=== PATIENT | male | born 1935 | race Caucasian/White ===

== ENCOUNTER 2017-10-12 08:55 | Emergency (ER) | payer MEDICARE, BC ==
[~2017-10-12] VITALS: Ht 170.2 cm; Wt 75.0 kg
[~2017-10-12 08:55] MED LIST: ASPI81 PO; ATOR20TA42 PO; FERR324T4 PO; LOSA25TA31 PO; NITR0.4S SL; OMEG1CAP53 PO; PLAV75TA PO; PROT40TA PO; TAMS0.4C67 PO
[2017-10-12 08:57] VITALS: BP 119/68; PULSE 75; RESP 18; TEMP 97.7; O2SAT 99
[2017-10-12 09:14] VITALS: BP 116/75; PULSE 68; RESP 16; O2SAT 95
[2017-10-12] MEDS ORDERED: SODIUM CHLOR 0.9% 1000 ML INJ 1,000 ML IV SCH (09:18)
--- NOTE | 2017-10-12 09:28 | PD ---
HPI Chief Complaint: Medical Clearance Time Seen by Provider: 09:08 Travel History International Travel<30 days: No Contact w/Intl Traveler<30days: No Traveled to known affect area: No History of Present Illness HPI The patient is a 82-year-old male who presents to the emergency department for generalized weakness. The patient states his symptoms started 5 months ago after he had his lower teeth pulled. The patient then went to a wedding in [place], [place], for his daughter. The patient had 4-5 days of increasing generalized malaise. The patient has been evaluated by his wind farm engineer, Dr. Souza, with a 1 week heart monitor that was unremarkable. The patient states he had laboratory evaluation by his primary physician, Dr. Perry, but there was no obvious source of his lethargy. He notes increasing generalized malaise for 5 months, states he has numbness and tingling from the head to the feet, and over the last several days has had lower abdominal pain. He does note some weight loss. He also notes a history of anemia, however, they do not know the source of bleeding. He denies any tick exposures or history of Lyme disease. He denies any history of autoimmune disorders including lupus and rheumatoid arthritis. He denies any current fever, chills, sweats, chest pain, shortness of breath, cough, nausea, vomiting, but does note lower abdominal pain. He denies any associated dysuria. Symptoms are moderate , chronic of 5 months duration, with no obvious source. 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 ) Endocrine: No Gastrointestinal Disorders: Yes GERD: Yes Genitourinary: Yes (TURP) Immune Disorder: No Implanted Vascular Access Dvce: Yes Musculoskeletal: Yes Neurologic: Yes Psychiatric: No Reproductive: No Respiratory: Yes (COPD) Immunizations Current: Yes Myocardial Infarction: Yes Influenza Vaccination: No Past Surgical History Body Medical Devices: STENT Cardiac Surgery: Yes (2 VESSEL HEART BYPASS AND 1 STENT, 3 STENTS) Endocrine Surgery: No Genitourinary Surgery: Yes (TURP) Other Surgery: Yes (FUSED L4-L5 S1) Social History Alcohol Use: Yes (RARE) Tobacco Use: No Substance Use: No Allergies-Medications (Allergen,Severity, Reaction): Coded Allergies: No Known Allergies (Verified Adverse Reaction, Unknown, 10/12/17) Reported Meds & Prescriptions Reported Meds & Active Scripts Active Protonix (Pantoprazole Sodium) 40 Mg Tabdr 40 Mg PO DAILY Ferrous Sulfate 325 Mg Tab 325 Mg PO BID Reported Nitrostat (Nitroglycerin) 0.4 Mg Subl 0.4 Mg SL PRN 1 TAB SL EVERY 5 MINS X 3 PRN CHEST PAIN Plavix (Clopidogrel Bisulfate) 75 Mg Tab 75 Mg PO DAILY Lipitor (Atorvastatin Calcium) 20 Mg Tab 20 Mg PO DAILY Flomax (Tamsulosin HCl) 0.4 Mg Cap 0.4 Mg PO DAILY Cozaar (Losartan Potassium) 25 Mg Tab 25 Mg PO DAILY Lovaza (Fish Oil) 1 Gm Cap 1 Gm PO DAILY Aspirin 81 Mg Tab 81 Mg PO DAILY Review of Systems Except as stated in HPI: all other systems reviewed are Neg General / Constitutional: Positive: Weight Loss, No: Fever HENT: No: Headaches, Lightheadedness Cardiovascular: No: Chest Pain or Discomfort Respiratory: No: Shortness of Breath Gastrointestinal: Positive: Abdominal Pain, Changes in Bowel Habits, No: Nausea , Vomiting, Diarrhea Genitourinary: No: Dysuria Musculoskeletal: Positive: Weakness Skin: No Rash Neurologic: Positive: Weakness Psychiatric: No: Depression Physical Exam Narrative GENERAL: Awake, alert, pleasant 82-year-old male who appears his stated age and is in no acute respiratory distress. SKIN: Focused skin assessment warm/dry. HEAD: Atraumatic. Normocephalic. EYES: Pupils equal and round. No scleral icterus. No injection or drainage. ENT: No nasal bleeding or discharge. No visible lower teeth. NECK: Trachea midline. No JVD. CARDIOVASCULAR: Regular rate and rhythm. No murmur appreciated. Heart rate in the 60s. RESPIRATORY: No accessory muscle use. Clear to auscultation. Breath sounds equal bilaterally. GASTROINTESTINAL: Abdomen soft, tender palpation lower quadrant. No guarding or rigidity. Back: Well-healed midline lower scar. Genitourinary: Uncircumcised phallus. Both testicles are descended. No tenderness over the epididymis. MUSCULOSKELETAL: No obvious deformities. No clubbing. No cyanosis. No edema. NEUROLOGICAL: Awake and alert. No obvious cranial nerve deficits. Motor grossly within normal limits. Normal speech. Nonfocal. PSYCHIATRIC: Appropriate mood and affect; insight and judgment normal. Data Data Last Documented VS Vital Signs Date Time Temp Pulse Resp B/P (MAP) Pulse Ox O2 Delivery O2 Flow Rate FiO2 10/12/17 10:42 52 15 95/63 (74) 94 Room Air 10/12/17 08:57 97.7 Orders Orders Electrocardiogram (10/12/17 09:18) Complete Blood Count With Diff (10/12/17:18) Comprehensive Metabolic Panel (10/12/17:18) Creatine Kinase (Cpk) (10/12/17:18) Prothrombin Time / Inr (Pt) (10/12/17:18) Act Partial Throm Time (Ptt) (10/12/17:18) Troponin I (10/12/17:18) Thyroid Stimulating Hormone (10/12/17:18) Urinalysis - C+S If Indicated (10/12/17 09:18) Chest, Single Ap (10/12/17 09:18) Ct Brain W/O Iv Contrast(Rout) (10/12/17 09:18) Blood Glucose (10/12/17 09:18) Ecg Monitoring (10/12/17 09:18) Iv Access Insert/Monitor (10/12/17:18) Oximetry (10/12/17 09:18) Sodium Chloride 0.9% Flush (Ns Flush) (10/12/17 09:30) Sodium Chlor 0.9% 1000 Ml Inj (Ns 1000 M (10/12/17 09:18) Ct Abd/Pel W Iv Contrast(Rout) (10/12/17 ) C-Reactive Protein (Crp) (10/12/17 09:18) [place]gren Sedimentation Rate (10/12/17 09:18) Lactic Acid (10/12/17 09:18) Blood Culture (10/12/17 09:18) Sodium Chlor 0.9% 1000 Ml Inj (Ns 1000 M (10/12/17 11:15) Iohexol 350 Inj (Omnipaque 350 Inj) (10/12/17 11:29) Ciprofloxacin 400 Mg Premix (Cipro 400 M (10/12/17 12:15) Metronidazole 500 Mg Inj (Flagyl 500 Mg (10/12/17 12:15) Sodium Chlor 0.9% 1000 Ml Inj (Ns 1000 M (10/12/17 12:30) Labs Laboratory Tests Test 10/12/17 09:45 10/12/17 10:30 White Blood Count 13.9 TH/MM3 Red Blood Count 4.91 MIL/MM3 Hemoglobin 15.0 GM/DL Hematocrit 43.3 % Mean Corpuscular Volume 88.2 FL Mean Corpuscular Hemoglobin 30.5 PG Mean Corpuscular Hemoglobin Concent 34.6 % Red Cell Distribution Width 13.3 % Platelet Count 191 TH/MM3 Mean Platelet Volume 8.5 FL Neutrophils (%) (Auto) 80.8 % Lymphocytes (%) (Auto) 10.5 % Monocytes (%) (Auto) 7.1 % Eosinophils (%) (Auto) 1.4 % Basophils (%) (Auto) 0.2 % Neutrophils # (Auto) 11.2 TH/MM3 Lymphocytes # (Auto) 1.5 TH/MM3 Monocytes # (Auto) 1.0 TH/MM3 Eosinophils # (Auto) 0.2 TH/MM3 Basophils # (Auto) 0.0 TH/MM3 CBC Comment DIFF FINAL Differential Comment Erythrocyte Sedimentation Rate 24 mm/hr Prothrombin Time 10.8 SEC Prothromb Time International Ratio 1.1 RATIO Activated Partial Thromboplast Time 26.4 SEC Blood Urea Nitrogen 11 MG/DL Creatinine 1.05 MG/DL Random Glucose 99 MG/DL Total Protein 7.4 GM/DL Albumin 3.9 GM/DL Calcium Level 9.3 MG/DL Alkaline Phosphatase 66 U/L Aspartate Amino Transf (AST/SGOT) 34 U/L Alanine Aminotransferase (ALT/SGPT) 22 U/L Total Bilirubin 1.1 MG/DL Sodium Level 137 MEQ/L Potassium Level 4.3 MEQ/L Chloride Level 103 MEQ/L Carbon Dioxide Level 26.0 MEQ/L Anion Gap 8 MEQ/L Estimat Glomerular Filtration Rate 67 ML/MIN Lactic Acid Level 1.5 mmol/L Total Creatine Kinase 164 U/L Troponin I LESS THAN 0.02 NG/ML C-Reactive Protein 5.00 MG/DL Thyroid Stimulating Hormone 3rd Gen 0.724 uIU/ML Urine Color YELLOW Urine Turbidity CLEAR Urine pH 7.0 Urine Specific [place] 1.024 Urine Protein TRACE mg/dL Urine Glucose (UA) NEG mg/dL Urine Ketones NEG mg/dL Urine Occult Blood NEG Urine Nitrite NEG Urine Bilirubin NEG Urine Urobilinogen LESS THAN 2.0 MG/DL Urine Leukocyte Esterase NEG Urine WBC 1 /hpf Urine Squamous Epithelial Cells 1 /hpf Urine Calcium Oxalate Crystals RARE /hpf Urine Mucus MANY /lpf Microscopic Urinalysis Comment CATH-CULT NOT IND MDM Medical Decision Making Medical Screen Exam Complete: Yes Emergency Medical Condition: Yes Medical Record Reviewed: Yes Interpretation(s) EKG reveals normal sinus rhythm with a rate of 66. RSR prime in V1 with QRS of 133 ms, right bundle branch block. Inverted T-wave in lead III. Last Impressions Head CT 10/12/17917 Signed Impressions: Service Date/Time: Thursday, October 12, 2017 11:22 - CONCLUSION: No acute disease. Ron Awad MD Chest X-Ray 10/12/17917 Signed Impressions: Service Date/Time: Thursday, October 12, 2017 09:26 - CONCLUSION: No acute cardiopulmonary disease. Romero Willard MD Abdomen/Pelvis CT 10/12/17 0000 Signed Impressions: Service Date/Time: Thursday, October 12, 2017 11:26 - CONCLUSION: Moderate diverticulosis with acute diverticulitis the sigmoid colon as described above. Given the focal bowel wall thickening, suggest followup CT abdomen and pelvis after appropriate clinical therapy to ensure resolution of these findings. Ron Awad MD Laboratory Tests Test 10/12/17 09:45 10/12/17 10:30 White Blood Count 13.9 TH/MM3 Red Blood Count 4.91 MIL/MM3 Hemoglobin 15.0 GM/DL Hematocrit 43.3 % Mean Corpuscular Volume 88.2 FL Mean Corpuscular Hemoglobin 30.5 PG Mean Corpuscular Hemoglobin Concent 34.6 % Red Cell Distribution Width 13.3 % Platelet Count 191 TH/MM3 Mean Platelet Volume 8.5 FL Neutrophils (%) (Auto) 80.8 % Lymphocytes (%) (Auto) 10.5 % Monocytes (%) (Auto) 7.1 % Eosinophils (%) (Auto) 1.4 % Basophils (%) (Auto) 0.2 % Neutrophils # (Auto) 11.2 TH/MM3 Lymphocytes # (Auto) 1.5 TH/MM3 Monocytes # (Auto) 1.0 TH/MM3 Eosinophils # (Auto) 0.2 TH/MM3 Basophils # (Auto) 0.0 TH/MM3 CBC Comment DIFF FINAL Differential Comment Erythrocyte Sedimentation Rate 24 mm/hr Prothrombin Time 10.8 SEC Prothromb Time International Ratio 1.1 RATIO Activated Partial Thromboplast Time 26.4 SEC Blood Urea Nitrogen 11 MG/DL Creatinine 1.05 MG/DL Random Glucose 99 MG/DL Total Protein 7.4 GM/DL Albumin 3.9 GM/DL Calcium Level 9.3 MG/DL Alkaline Phosphatase 66 U/L Aspartate Amino Transf (AST/SGOT) 34 U/L Alanine Aminotransferase (ALT/SGPT) 22 U/L Total Bilirubin 1.1 MG/DL Sodium Level 137 MEQ/L Potassium Level 4.3 MEQ/L Chloride Level 103 MEQ/L Carbon Dioxide Level 26.0 MEQ/L Anion Gap 8 MEQ/L Estimat Glomerular Filtration Rate 67 ML/MIN Lactic Acid Level 1.5 mmol/L Total Creatine Kinase 164 U/L Troponin I LESS THAN 0.02 NG/ML C-Reactive Protein 5.00 MG/DL Thyroid Stimulating Hormone 3rd Gen 0.724 uIU/ML Urine Color YELLOW Urine Turbidity CLEAR Urine pH 7.0 Urine Specific [place] 1.024 Urine Protein TRACE mg/dL Urine Glucose (UA) NEG mg/dL Urine Ketones NEG mg/dL Urine Occult Blood NEG Urine Nitrite NEG Urine Bilirubin NEG Urine Urobilinogen LESS THAN 2.0 MG/DL Urine Leukocyte Esterase NEG Urine WBC 1 /hpf Urine Squamous Epithelial Cells 1 /hpf Urine Calcium Oxalate Crystals RARE /hpf Urine Mucus MANY /lpf Microscopic Urinalysis Comment CATH-CULT NOT IND Differential Diagnosis Differential diagnosis includes Lyme disease, autoimmune disorder, symptomatic anemia, hypothyroidism, colon cancer, pancreatic cancer, UTI, depression, subdural hematoma, septicemia. Narrative Course IV was established, labs are drawn and sent, and the patient was placed on cardiac telemetry monitoring and continuous pulse oximetry monitoring. EKG was ordered and interpreted. CT brain and abdomen/pelvis were obtained. TSH, CPK, sed rate, and CRP were sent to lab. The patient's white count is mildly elevated. Sed rate minimally elevated. CRP is elevated. The patient's blood pressure systolic was in the 90s, heart rate was in the 40s-50s, patient was sitting upright and asymptomatic. I recommended admission for diverticulitis, however, the patient does not want to be admitted states he does have close follow-up with his primary physician, Dr. Magana. Therefore, the patient was administered Cipro and Flagyl, will be discharged home on Cipro and Flagyl with [place] as needed for pain. Plenty fluids to stay hydrated. He is advised to return if symptoms worsen or progress and follow-up with his primary physician. Diagnosis Primary Impression: Diverticulitis Patient Instructions: General Instructions Additional Instructions: Medications as directed. Follow-up with Dr. cruz as soon as possible. Return if symptoms worsen or progress. Please provide the patient a copy of his labs and CT discharge. Med/Other Pt SpecificInfo: Prescription(s) given Scripts Hydrocodone-Acetaminophen ([place]) 5 Mg-325 Mg Tab 1 TAB PO Q6H Y for PAIN, #12 TAB 0 Refills Prov: Jd Poole MD 10/12/17 Metronidazole (Flagyl) 500 Mg Tab 500 MG PO BID for Infection for 10 Days, #20 TAB 0 Refills Prov: Jd Poole MD 10/12/17 Ciprofloxacin (Cipro) 500 Mg Tab 500 MG PO BID for Infection for 10 Days, #20 TAB 0 Refills Prov: Jd Poole MD 10/12/17 Disposition: 01 DISCHARGE HOME Condition: Stable Jd Poole MD Oct 12, 2017 09:28
[2017-10-12] MEDS ORDERED: SODIUM CHLORIDE 0.9% FLUSH 10 ML FLUSH IV FLUSH PRN (09:30)
--- NOTE | 2017-10-12 09:38 | RADRPT ---
EXAM DATE/TIME: 10/12/2017 09:26 [facility] COMPARISON: CHEST SINGLE AP, May 12, 2015, 19:41. INDICATIONS : Patient states shortness of breath. MEDICAL HISTORY : Cardiovascular disease. SURGICAL HISTORY : CABG. Cardiac stents (s). ENCOUNTER: Initial ACUITY: 1 day PAIN SCORE: 0/10 LOCATION: Bilateral chest FINDINGS: Median sternotomy wires are noted status post cardiac surgery. The heart is stable. The pulmonary vas cular pattern is normal. The lungs are clear. Degenerative changes and scoliosis of the thoracic spin e are noted CONCLUSION: No acute cardiopulmonary disease. Romero Willard MD on October 12, 2017 at 9:35 Board Certified Radiologist. This report was verified electronically.
[2017-10-12 10:25] LABS: AUTOMATED NEUTROPHIL # 11.2 TH/MM3 (1.8-7.7); BASOPHIL % 0.2 % (0.0-2.0); EOSINOPHIL # 0.2 TH/MM3 (0-0.4); EOSINOPHIL % 1.4 % (0.0-4.0); HEMATOCRIT 43.3 % (39.0-51.0); LYMPH % 10.5 % (9.0-44.0); LYMPHOCYTE # 1.5 TH/MM3 (1.0-4.8); MEAN CELL VOLUME 88.2 FL (80.0-100.0); MEAN CORPUSCULAR HEMOGLOBIN 30.5 PG (27.0-34.0); MEAN CORPUSCULAR HGB CONC 34.6 % (32.0-36.0); MEAN PLATELET VOLUME 8.5 FL (7.0-11.0); MONO % 7.1 % (0.0-8.0); NEUT % 80.8 % (16.0-70.0); PLATELET COUNT 191 TH/MM3 (150-450); RED BLOOD COUNT 4.91 MIL/MM3 (4.50-5.90); RED CELL DISTRIBUTION WIDTH 13.3 % (11.6-17.2); WHITE BLOOD COUNT 13.9 TH/MM3 (4.0-11.0)
[2017-10-12 10:31] LABS: INTERNATIONAL NORMALIZED RATIO 1.1 RATIO; PROTHROMBIN TIME - PATIENT 10.8 SEC (9.8-11.6)
[2017-10-12 10:38] LABS: ALT (GPT) 22 U/L (12-78)
[2017-10-12 10:42] VITALS: BP 95/63; PULSE 52; RESP 15; O2SAT 94
[2017-10-12 11:04] LABS: ALBUMIN 3.9 GM/DL (3.4-5.0); ALKALINE PHOSPHATASE 66 U/L (45-117); AST (GOT) 34 U/L (15-37); BLOOD UREA NITROGEN 11 MG/DL (7-18); CALCIUM 9.3 MG/DL (8.5-10.1); CHLORIDE 103 MEQ/L (98-107); CREATININE 1.05 MG/DL (0.60-1.30); GLOMERULAR FILTRATION RATE 67 ML/MIN (>89); GLUCOSE,RANDOM 99 MG/DL (74-106); SODIUM (NA) 137 MEQ/L (136-145); TOTAL BILIRUBIN ADULT 1.1 MG/DL (0.2-1.0); TOTAL PROTEIN 7.4 GM/DL (6.4-8.2); TROPONIN I LESS THAN 0.02 NG/ML (0.02-0.05)
[2017-10-12] MEDS ORDERED: SODIUM CHLOR 0.9% 1000 ML INJ 1,000 ML IV ONE ×2 (11:15→12:30)
[2017-10-12] MEDS ORDERED: IOHEXOL 350 MG/ML 10 ML VIAL (for RAD DIAG) IVCONTRAST ONE (11:29)
--- NOTE | 2017-10-12 11:29 | RADRPT ---
EXAM DATE/TIME: 10/12/2017 11:22 [facility] COMPARISON: No previous studies available for comparison. INDICATIONS : Altered mental status. RADIATION DOSE: 50.74 CTDIvol (mGy) MEDICAL HISTORY : Cardiovascular disease. SURGICAL HISTORY : TURP ENCOUNTER: Initial ACUITY: 1 day PAIN SCALE: 0/10 LOCATION: cranial TECHNIQUE: Multiple contiguous axial images were obtained of the head. Using automated exposure control and adj ustment of the mA and/or kV according to patient size, radiation dose was kept as low as reasonably a chievable to obtain optimal diagnostic quality images. DICOM format image data is available electro nically for review and comparison. FINDINGS: CEREBRUM: The ventricles are normal for age. No evidence of midline shift, mass lesion, hemorrhage or acute in farction. No extra-axial fluid collections are seen. POSTERIOR FOSSA: The cerebellum and brainstem are intact. The 4th ventricle is midline. The cerebellopontine angle i s unremarkable. EXTRACRANIAL: The visualized portion of the orbits is intact. SKULL: The calvaria is intact. No evidence of skull fracture. CONCLUSION: No acute disease. Ron Awad MD on October 12, 2017 at 11:27 Board Certified Radiologist. This report was verified electronically.
[2017-10-12 11:46] LABS: BILIRUBIN, URINE NEG (NEG); BLOOD, URINE NEG (NEG); CALCIUM OXALATE CRYSTALS,URINE RARE /hpf; GLUCOSE,URINE NEG (NEG); KETONE, URINE NEG (NEG); MUCUS URINE MANY /lpf (OCC); NITRITE,URINE NEG (NEG); SQUAMOUS EPITHELIAL CELL URINE 1 /hpf (0-5); URINE COLOR YELLOW (YELLW/STRAW); URINE LEUKOCYTE ESTERASE NEG (NEG)
--- NOTE | 2017-10-12 11:49 | RADRPT ---
EXAM DATE/TIME: 10/12/2017 11:26 [facility] COMPARISON: No previous studies available for comparison. INDICATIONS : Abdominal pain and weight loss. IV CONTRAST: 95 cc Omnipaque 350 (iohexol) IV ORAL CONTRAST: No oral contrast ingested. RADIATION DOSE: 9.60 CTDIvol (mGy) MEDICAL HISTORY : Cardiovascular disease. SURGICAL HISTORY : TURP, Left hip replacement, lumbar fusion. ENCOUNTER: Initial ACUITY: 1 month PAIN SCALE: 4/10 LOCATION: abdomen TECHNIQUE: Volumetric scanning of the abdomen and pelvis was performed. Using automated exposure control and ad justment of the mA and/or kV according to patient size, radiation dose was kept as low as reasonably achievable to obtain optimal diagnostic quality images. DICOM format image data is available electro nically for review and comparison. FINDINGS: No pleural or pericardial effusions are seen. There are scattered cysts present within the liver the largest in the lateral left lobe measuring 2.4 cm. Gallbladder, pancreas, adrenals are unremarkable. Calcified granulomas are present within the spleen. There is a cyst at the midpole of the right kidne y measuring 1.5 cm. Atherosclerotic calcifications of the aorta and iliac vessels are seen. The patie nt has had previous TURP, and the prostate gland is prominent in size measuring 6.3 x 4.7 cm in trans verse and AP dimension. Urinary bladder unremarkable. There are extensive inflammatory changes seen i n the sigmoid mesentery with moderate diverticulosis and an inflamed diverticulum characteristic of a cute diverticulitis. There is associated bowel wall thickening extending over 7 cm. Moderate descendi ng colonic diverticulosis without diverticulitis is also present. The appendix is normal. There is no adenopathy. Lung bases are clear. Osseous structures demonstrate posterior lawrence and transpedicular sc rew fixation and intervertebral fusion hardware placement at L4-5. CONCLUSION: Moderate diverticulosis with acute diverticulitis the sigmoid colon as described above. Given the foc al bowel wall thickening, suggest followup CT abdomen and pelvis after appropriate clinical therapy t o ensure resolution of these findings. Ron Awad MD on October 12, 2017 at 11:45 Board Certified Radiologist. This report was verified electronically.
[2017-10-12] MEDS ORDERED: metroNIDAZOLE 500 MG INJ 100 ML IV ONE (12:15)
[2017-10-12] MEDS ORDERED: CIPROFLOXACIN 400 MG PREMIX 200 ML IV ONE (12:15)
[2017-10-12] MEDS ORDERED: NORC5TAB PO (12:53)
[2017-10-12] MEDS ORDERED: METR-1 PO (12:53)
[2017-10-12] MEDS ORDERED: CIPR-9 PO (12:53)
--- NOTE | 2017-10-12 18:45 | EKG ---
Date Performed: 10/12/2017 Time Performed: 09:20:32 PTAGE: 82 years EKG: Sinus rhythm RIGHT BUNDLE BRANCH BLOCK Since the prior tracing, there has been no significant change ABNORMAL ECG PREVIOUS TRACING : 05/13/15 @ 0729 DOCTOR: Kerline Wagoner Interpretating Date/Time 10/12/2017 18:44:40
== END 2017-10-12 14:24 | disposition home or self-care (01) ==
LOC: NEPC 08:55
DX: K57.92 Diverticulitis of intestine, part unspecified, without perforation or abscess without bleeding (principal); K57.90 Diverticulosis of intestine, part unspecified, without perforation or abscess without bleeding; I45.10 Unspecified right bundle-branch block; R94.31 Abnormal electrocardiogram [ECG] [EKG]; D64.9 Anemia, unspecified; M32.9 Systemic lupus erythematosus, unspecified; M06.9 Rheumatoid arthritis, unspecified; M19.90 Unspecified osteoarthritis, unspecified site; J44.9 Chronic obstructive pulmonary disease, unspecified
CPT/HCPCS: 70450; 71045; 74177; 80053; 81001; 82550; 83605; 84443; 84484; 85025; 85610; 85652; 85730; 86140; 87040; 93005; 96361; 96365; 96367; 99285; J0744; J7030; Q9967

== ENCOUNTER 2017-11-10 19:25 | Emergency (ER) | payer MEDICARE, BC ==
[~2017-11-10 19:25] MED LIST changes: +CIPR-9 PO; +METR-1 PO; +NORC5TAB PO
[2017-11-10 19:59] VITALS: BP 139/68; PULSE 63; RESP 18; TEMP 98.5; O2SAT 95
[2017-11-10 21:11] LABS: AUTOMATED NEUTROPHIL # 7.3 TH/MM3 (1.8-7.7); BASOPHIL # 0.1 TH/MM3 (0-0.2); BASOPHIL % 0.5 % (0.0-2.0); EOSINOPHIL # 0.4 TH/MM3 (0-0.4); EOSINOPHIL % 3.6 % (0.0-4.0); HEMATOCRIT 42.5 % (39.0-51.0); HEMOGLOBIN 14.5 GM/DL (13.0-17.0); LYMPHOCYTE # 1.6 TH/MM3 (1.0-4.8); MEAN CELL VOLUME 88.2 FL (80.0-100.0); MEAN CORPUSCULAR HEMOGLOBIN 30.1 PG (27.0-34.0); MEAN CORPUSCULAR HGB CONC 34.1 % (32.0-36.0); MEAN PLATELET VOLUME 8.5 FL (7.0-11.0); MONOCYTE # 0.9 TH/MM3 (0-0.9); NEUT % 70.9 % (16.0-70.0); PLATELET COUNT 156 TH/MM3 (150-450); RED BLOOD COUNT 4.82 MIL/MM3 (4.50-5.90); RED CELL DISTRIBUTION WIDTH 13.3 % (11.6-17.2); WHITE BLOOD COUNT 10.2 TH/MM3 (4.0-11.0)
[2017-11-10 21:15] LABS: BILIRUBIN, URINE NEG (NEG); BLOOD, URINE NEG (NEG); GLUCOSE,URINE NEG (NEG); KETONE, URINE NEG (NEG); NITRITE,URINE NEG (NEG); SQUAMOUS EPITHELIAL CELL URINE <1 /hpf (0-5); URINE COLOR YELLOW (YELLW/STRAW); URINE LEUKOCYTE ESTERASE NEG (NEG)
[2017-11-10 21:21] LABS: PROTHROMBIN TIME - PATIENT 10.2 SEC (9.8-11.6)
[2017-11-10 21:39] LABS: AST (GOT) 22 U/L (15-37); BICARBONATE 30.5 MEQ/L (21.0-32.0); BLOOD UREA NITROGEN 10 MG/DL (7-18); CALCIUM 9.1 MG/DL (8.5-10.1); CHLORIDE 103 MEQ/L (98-107); CREATININE 1.09 MG/DL (0.60-1.30); GLOMERULAR FILTRATION RATE 64 ML/MIN (>89); GLUCOSE,RANDOM 71 MG/DL (74-106); SODIUM (NA) 140 MEQ/L (136-145)
--- NOTE | 2017-11-10 21:40 | PD ---
HPI Chief Complaint: Abdominal Pain Time Seen by Provider: 19:59 Travel History International Travel<30 days: No Contact w/Intl Traveler<30days: No History of Present Illness HPI 82-year-old male presents to the ED for evaluation of 7/10 left lower quadrant abdominal pain and small BMs 1 week. Patient denies fever, chills, nausea, vomiting. He endorses history of diverticulitis. States that he has been seen for this in the past, compliant with medications. 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 ) Endocrine: No Gastrointestinal Disorders: Yes GERD: Yes Genitourinary: Yes (TURP) Immune Disorder: No Implanted Vascular Access Dvce: Yes Musculoskeletal: Yes Neurologic: Yes Psychiatric: No Reproductive: No Respiratory: Yes (COPD) Immunizations Current: Yes Myocardial Infarction: Yes Past Surgical History Body Medical Devices: STENT Cardiac Surgery: Yes (2 VESSEL HEART BYPASS AND 1 STENT, 3 STENTS) Endocrine Surgery: No Genitourinary Surgery: Yes (TURP) Other Surgery: Yes (FUSED L4-L5 S1) Social History Alcohol Use: Yes (RARE) Tobacco Use: No Substance Use: No Allergies-Medications (Allergen,Severity, Reaction): Coded Allergies: No Known Allergies (Verified Adverse Reaction, Unknown, 10/12/17) Reported Meds & Prescriptions Reported Meds & Active Scripts Active [place] (Hydrocodone-Acetaminophen) 5 Mg-325 Mg Tab 1 Tab PO Q6H PRN Flagyl (Metronidazole) 500 Mg Tab 500 Mg PO BID 10 Days Cipro (Ciprofloxacin HCl) 500 Mg Tab 500 Mg PO BID 10 Days Protonix (Pantoprazole Sodium) 40 Mg Tabdr 40 Mg PO DAILY Ferrous Sulfate 325 Mg Tab 325 Mg PO BID Reported Nitrostat (Nitroglycerin) 0.4 Mg Subl 0.4 Mg SL PRN 1 TAB SL EVERY 5 MINS X 3 PRN CHEST PAIN Plavix (Clopidogrel Bisulfate) 75 Mg Tab 75 Mg PO DAILY Lipitor (Atorvastatin Calcium) 20 Mg Tab 20 Mg PO DAILY Flomax (Tamsulosin HCl) 0.4 Mg Cap 0.4 Mg PO DAILY Cozaar (Losartan Potassium) 25 Mg Tab 25 Mg PO DAILY Lovaza (Fish Oil) 1 Gm Cap 1 Gm PO DAILY Aspirin 81 Mg Tab 81 Mg PO DAILY Review of Systems Except as stated in HPI: all other systems reviewed are Neg Physical Exam Narrative GENERAL: Well-nourished, well-developed anxious white male in no acute distress. SKIN: Focused skin assessment warm/dry. HEAD: Normocephalic. EYES: No scleral icterus. No injection or drainage. RESPIRATORY: No accessory muscle use. MUSCULOSKELETAL: No cyanosis, or edema. Walks with a cane. BACK: No obvious deformity. Data Data Last Documented VS Vital Signs Date Time Temp Pulse Resp B/P (MAP) Pulse Ox O2 Delivery O2 Flow Rate FiO2 11/10/17 19:59 98.5 63 18 139/68 (91) 95 Orders Orders Complete Blood Count With Diff (11/10/17 20:03) Comprehensive Metabolic Panel (11/10/17 20:03) Prothrombin Time / Inr (Pt) (11/10/17 20:03) Act Partial Throm Time (Ptt) (11/10/17 20:03) Urinalysis - C+S If Indicated (11/10/17 20:03) Labs Laboratory Tests Test 11/10/17 20:10 11/10/17 20:15 White Blood Count 10.2 TH/MM3 Red Blood Count 4.82 MIL/MM3 Hemoglobin 14.5 GM/DL Hematocrit 42.5 % Mean Corpuscular Volume 88.2 FL Mean Corpuscular Hemoglobin 30.1 PG Mean Corpuscular Hemoglobin Concent 34.1 % Red Cell Distribution Width 13.3 % Platelet Count 156 TH/MM3 Mean Platelet Volume 8.5 FL Neutrophils (%) (Auto) 70.9 % Lymphocytes (%) (Auto) 16.0 % Monocytes (%) (Auto) 9.0 % Eosinophils (%) (Auto) 3.6 % Basophils (%) (Auto) 0.5 % Neutrophils # (Auto) 7.3 TH/MM3 Lymphocytes # (Auto) 1.6 TH/MM3 Monocytes # (Auto) 0.9 TH/MM3 Eosinophils # (Auto) 0.4 TH/MM3 Basophils # (Auto) 0.1 TH/MM3 CBC Comment DIFF FINAL Differential Comment Prothrombin Time 10.2 SEC Prothromb Time International Ratio 1.0 RATIO Activated Partial Thromboplast Time 25.9 SEC Urine Color YELLOW Urine Turbidity CLEAR Urine pH 7.0 Urine Specific [place] 1.010 Urine Protein NEG mg/dL Urine Glucose (UA) NEG mg/dL Urine Ketones NEG mg/dL Urine Occult Blood NEG Urine Nitrite NEG Urine Bilirubin NEG Urine Urobilinogen LESS THAN 2.0 MG/DL Urine Leukocyte Esterase NEG Urine WBC LESS THAN 1 /hpf Urine Squamous Epithelial Cells <1 /hpf Microscopic Urinalysis Comment CULT NOT INDICATED MDM Medical Decision Making Medical Screen Exam Complete: Yes Emergency Medical Condition: Yes Differential Diagnosis Diverticulitis versus constipation versus GI bleed versus other Narrative Course 82-year-old male with PMH of diverticulitis presents to the ED for evaluation of left lower quadrant abdominal pain and small bowel movements 1 week. Patient denies fever, chills, nausea, vomiting. Patient's afebrile, vitals stable on presentation. Patient seen in the triage area, awaiting bed placement. Patient states that he does not wish to wait for evaluation. I explained the risks of leaving, up to and including loss of life. Patient indicated understanding of the risks, but chose to leave AGAINST MEDICAL ADVICE. Diagnosis Primary Impression: Left against medical advice Nery Hollis Nov 10, 2017 21:40
[2017-11-10 21:45] LABS: ALKALINE PHOSPHATASE 66 U/L (45-117); ALT (GPT) 30 U/L (12-78); TOTAL BILIRUBIN ADULT 0.6 MG/DL (0.2-1.0); TOTAL PROTEIN 7.6 GM/DL (6.4-8.2)
== END 2017-11-10 20:21 | disposition left against medical advice (07) ==
LOC: NED 19:25
DX: R10.32 Left lower quadrant pain (principal); M19.90 Unspecified osteoarthritis, unspecified site; J44.9 Chronic obstructive pulmonary disease, unspecified; K21.9 Gastro-esophageal reflux disease without esophagitis; I25.2 Old myocardial infarction; Z79.02 Long term (current) use of antithrombotics/antiplatelets; Z79.82 Long term (current) use of aspirin; Z87.19 Personal history of other diseases of the digestive system; Z79.899 Other long term (current) drug therapy
CPT/HCPCS: 80053; 81001; 85025; 85610; 85730; 99283